=== PATIENT | female | born 1960 | race Caucasian/White ===

== ENCOUNTER → 2017-07-28 | Day surgery (SDC) | payer BC, OTHER ==
[~2017-07-28] MED LIST: Lactated Ringers 1,000 ML IV SCH; Propofol 200 MG/20 ML SDV IV ONE
[2017-07-28 09:01] VITALS: BP 123/81
--- NOTE | 2017-07-28 10:08 | OR ---
DATE OF OPERATION: 07/28/2017 PREOPERATIVE DIAGNOSIS: SCREENING COLONOSCOPY. POSTOPERATIVE DIAGNOSIS: SCREENING COLONOSCOPY. SURGEON: Vince Davidson MD PROCEDURE: FULL-LENGTH COLONOSCOPY. ANESTHESIA: CERTIFIED PHYSICIAN ASSISTANT due to anxiety disorder. COMPLICATIONS: None. SPECIMEN: None. FINDINGS: Normal full-length colonoscopy. RECOMMENDATIONS: Routine colonoscopy every 10 years. INDICATIONS: The patient was in for a physical. She was sent for a screening colonoscopy due to her age. DESCRIPTION OF PROCEDURE: The patient was prepped and draped, placed in the left lateral decubitus position. A lubricated Olympus colonoscope was inserted and easily advanced to the cecum. Direct visualization of the ileocecal valve and appendiceal orifice was accomplished. The bowel prep was adequate. Upon withdrawal of the scope, throughout the length of colon, I could find no signs of any polyps, mass, ulceration, or bleeding sites. No vascular abnormalities or signs of colitis. There were no diverticula. The rectal vault was unremarkable. Retroflexion of the scope in the rectum showed no anal lesions. Air was suctioned, scope removed without complication. MILVIA/LEONEL /[id number]
== END ==
LOC: CC.SDS 07:26
PROVIDERS: ATTEND Family Medicine
DX: Z12.11 Encounter for screening for malignant neoplasm of colon (principal); F41.9 Anxiety disorder, unspecified
CPT/HCPCS: 45378; J7120; J2704